=== PATIENT | female | born 1935 | race Asian ===

== ENCOUNTER 2016-10-25 13:52 | Day surgery (SDC) | payer MEDICARE ==
[~2016-10-25] VITALS: Ht 152.4 cm; Wt 63.0 kg
[~2016-10-25 13:52] MED LIST: 0.9% Sodium Chloride 1,000 ML IV PRN; OLP.1OP5 BOTH_EYES; Sodium Chloride LOK Flush 10 mL Syringe IV PRN; fentaNYL-PF 50 mCg/mL 2 mL Inj IVPUSH PRN
[2016-10-25 14:19] VITALS: BP 165/83; PULSE 87; RESP 14; O2SAT 96
[2016-10-25] MEDS ORDERED: METF500T4 PO (14:24)
[2016-10-25] MEDS ORDERED: NIFE30TA79 PO (14:24)
--- NOTE | 2016-10-25 16:14 | PCM.ENDEGD ---
EGD Date of Service: Oct 25, 2016 Physician Kale Muir MD Pre Procedure Diagnosis: Reflux Post Procedure Dx & Findings: Duodenal ulcers Procedure Esophagogastroduodenoscopy PROCEDURE IN DETAIL: The patient was placed in left lateral decubitus position. Bite block was placed. Scope lubricated, placed in posterior pharynx, passed through the cricopharyngeus and esophagus, slowly advanced the entire length of the gastric pouch, pylorus was identified, scope passed through the pylorus and descending portion of duodenum, withdrawn in the antrum, retroflexed upon itself for view of fundus and cardia. Scope was then withdrawn through the oropharynx. Esophagus was unremarkable except in the Z line there were some irregular lines. This was biopsied using cold forceps. The stomach appeared normal. Retroflexion was done. Stomach was easily inflatable and deflated using air. Cardia fundus body antrum pylorus were visualized. There was no ulcer or erosions or masses. Scope was advanced to the distal duodenum. In the duodenal bulb as well as the first and second pass of the duodenum, there were multiple clean-based ulcers. There were swelling as well. Sample Biopsies obtained. Impression Irregular Z line status post biopsies Duodenal ulcers with sampling biopsies Recommendation Stop all NSAIDs Resume Prilosec 20 mg twice a day. Presedation Assessment Risks and Benefits Informed consent was obtained from the patient after all risks and benefits including but not limited to drug reaction, infection, pain, bleeding, perforation, as well as alternatives were discussed. Patient monitoring Continuous pulse oximetry, cardiac monitoring, blood pressure monitoring, IV access, and oxygen at 2L per nasal cannula. Periprocedural Fentanyl: Fentanyl 75mcg Incrementally Midazolam: Midazolam 3mg Incrementally Complications There were no periprocedural complications identified. Post Procedure Plan Post Procedure Recommendations 1. Restrict activities today. 2. Resume normal activities in the morning. 3. Resume medications. 4. GERD behavioral modification: - Avoid fatty, acidic, spicy, large meals - Do not lie down after meals - Do not eat or drink anything for at least 2 1/2 hours before going to bed at night - Discontinue tobacco and alcohol - Decrease or avoid caffeine - Avoid chocolate and mints - Decrease weight - Avoid aspirin and non steroidal anti-inflammatory agents (NSAID) such as Aleve, Advil, Mobic, Naproxen, Ibuprofen, etc 5. Add proton pump inhibitor. Take 30 minutes before 1st meal of the day. 6. Patient informed of normal post procedure side effects as bloating, drowsiness, blood streaking in the stool 7. If gastric biopsy reveal H.pylori, continue with appropriate treatment 8. If small bowel biopsy reveals celiac, continue with appropriate treatment 9. Please don't hesitate to call me with any questions Kale Muir MD Oct 25, 2016 16:14
[2016-10-25 16:45] VITALS: BP 162/74; PULSE 80; RESP 16; O2SAT 96
[2016-10-25 16:55] VITALS: BP 162/84; PULSE 78; RESP 16; O2SAT 94
--- NOTE | 2016-10-25 17:19 | PCM.ENDCOL ---
Colonoscopy Date of Service: Oct 25, 2016 Physician Kale Muir MD Pre Procedure Diagnosis: Screening colonoscopy Post Procedure Dx & Findings: Polyp hemorrhoids Procedure Colonoscopy Prep adequate Withdrawal 16 minutes PROCEDURE IN DETAIL: After unremarkable rectal examination, the Olympus video colonoscope was inserted into patient's anal canal and was advanced to cecum. Landmarks were identified including the ileocecal valve and appendiceal orifice. Scope was withdrawn systematically. The mucosa of the cecum, ascending, transverse, descending, sigmoid, rectal mucosa lined with whitish, pink, smooth, glistening, normal-appearing mucosa, normal fine branching, underlying vascularity, normal haustra. The patient tolerated procedure and was transported to observation area. In the ascending colon, there was a 3 mm polyp which was removed completely using cold snare. During the retrieval, the polyp appeared to have disintegrated. In the transverse colon there was a 2 mm polyp which was resected completely using cold snare. In the rectosigmoid area, there was a 2 mm polyp which was removed completely using cold snare. In the rectum there was a 1 mm polyp which was removed completely using cold forceps. In the rectum retroflexion was done which showed hemorrhoids. Anal canals was inspected carefully on the way out and hemorrhoids noted. Impression Polyp 4 status post complete removal. One of them was disintegrated during the retrieval process. Hemorrhoids Recommendation Repeat colonoscopy in 3 years. Presedation Assessment Risks and Benefits Informed consent was obtained from the patient after all risks and benefits including but not limited to drug reaction, infection, pain, bleeding, perforation, as well as alternatives were discussed. Patient monitoring Continuous pulse oximetry, cardiac monitoring, blood pressure monitoring, IV access, and oxygen at 2L per nasal cannula. Complications There were no periprocedural complications identified. Post Procedure Plan Post Procedure Recommendations 1. Restrict activities today. 2. Resume normal activities in the morning. 3. Resume medications. 4. Patient informed of normal post procedure side effects as bloating, drowsiness, blood streaking in the stool. 5. average risk CRCS. If colon polyps come back as: -Hyperplastic- can repeat colonoscopy in 10 years -Tubular adenoma- repeat colonoscopy in 5 years -Tubulovillous/villous adenoma- repeat colonoscopy in 3 years -If any dysplasia- return to clinic as soon as possible 6. Please don't hesitate to call me with any questions. Kale Muir MD Oct 25, 2016 17:19
--- NOTE | 2016-10-29 10:09 | PATH ---
SURGICAL PATHOLOGY Attending Physician:Kale Muir M.D. CASE STATUS: Signed Out PATIENT NAME: MARICRUZ VELASQUEZ PID: [id number] : 1935 DATE COLLECTED:10/25/2016 00:00 SPECIMEN: 1: Duodenum, Biopsy 2: Esophagus, Biopsy 3: Colon, Biopsy 4: Colon, Biopsy 5: Rectum, Biopsy CLINICAL HISTORY: 1: DUODENAL ULCER BIOPSY 2: ESOPHAGUS BIOPSY 3: TRANSVERSE COLON POLYP X1 4: SIGMOID POLYP X1 5: RECTAL POLYP X1 FINAL DIAGNOSIS: 1.DUODENAL ULCER BIOPSY: FRAGMENT OF DUODENAL MUCOSA WITH CHRONIC DUODENITIS AND FOCAL SUPERFICIAL MUCOSAL EROSION. Negative for dysplasia and malignancy. 2.ESOPHAGUS BIOPSY: FRAGMENTS OF SQUAMOUS MUCOSA AND GASTRIC CARDIA-TYPE MUCOSA NEGATIVE FOR SPECIALIZED METAPLASIA OF COATES' S ESOPHAGUS. CHRONIC INFLAMMATION WITH REACTIVE EPITHELIAL CHANGES, BUT NEGATIVE FOR DYSPLASIA AND MALIGNANCY. RARE EOSINOPHILS PRESENT WITHIN SQUAMOUS EPITHELIUM CONSISTENT WITH CHANGES OF CHRONIC REFLUX. 3.TRANSVERSE COLON POLYP: HYPERPLASTIC POLYP. 4.SIGMOID COLON POLYP: TUBULAR ADENOMA. 5.RECTAL POLYP: HYPERPLASTIC POLYP. ICD10 CODE D12.5 GROSS DESCRIPTION: The specimen is received in five formalin filled containers labeled with the patient's name. 1). The specimen is sublabeled "duodenal ulcer" and consists of a 0.3 x 0.2 x 0.2 CM portion of tissue which is entirely submitted in cassette 1A. 2). The specimen is sublabeled "esophagus" and consists of 2 portions of tissue which aggregate to 0.3 x 0.3 x 0.2 CM. Specimen is entirely submitted in cassette 2A. 3). The specimen is sublabeled "transverse colon polyp x1" and consists of a 0.3 x 0.3 x 0.3 CM portion of tissue which is entirely submitted in cassette 3A. 4). The specimen is sublabeled "sigmoid polyp X1" and consists of a 0.3 x 0.2 x 0.2 CM portion of tissue which is entirely submitted in cassette 4A. 5). The specimen is sublabeled "rectal polyp X1" and consists of a 0.3 x 0.2 x 0.2 CM portion of tissue which is entirely submitted in cassette 5A. 10/26/2016 DAC MICRO DESCRIPTION: See diagnosis. ICD-9 CODES: CPT CODES: 1: 41454 2: 90522 3: 26655 4: 32038 5: 47973 Electronically Signed Out Luisito Alvarez MD [facility] [address], [place] [address] Technical component performed at [facility], [address], [place], [address]
== END 2016-10-25 23:59 | disposition home or self-care (01) ==
LOC: END 13:52
PROVIDERS: ATTEND Internal Medicine
DX: Z12.11 Encounter for screening for malignant neoplasm of colon (principal); D12.5 Benign neoplasm of sigmoid colon; K63.5 Polyp of colon; K62.1 Rectal polyp; K64.9 Unspecified hemorrhoids; K21.9 Gastro-esophageal reflux disease without esophagitis; K29.80 Duodenitis without bleeding; E11.9 Type 2 diabetes mellitus without complications; Z79.84 Long term (current) use of oral hypoglycemic drugs; I10 Essential (primary) hypertension
CPT/HCPCS: 43239; 45380; 45385; 88305; 99153; G0500; J2250; J3010; J7030

== ENCOUNTER 2016-12-10 03:02 | Emergency (ER) | payer MEDICARE ==
[~2016-12-10] VITALS: Ht 152.4 cm; Wt 61.4 kg
[~2016-12-10 03:02] MED LIST changes: -0.9% Sodium Chloride 1,000 ML IV PRN; +METF500T4 PO; +NIFE30TA79 PO; -OLP.1OP5 BOTH_EYES; -Sodium Chloride LOK Flush 10 mL Syringe IV PRN; -fentaNYL-PF 50 mCg/mL 2 mL Inj IVPUSH PRN
[2016-12-10 03:09] VITALS: BP 128/74; PULSE 87; RESP 20; O2SAT 98
--- NOTE | 2016-12-10 03:35 | ED.REPORT ---
HPI-General Illness Date of Service Dec 10, 2016 ED Provider: Ton Le MD 81 year old female with a history of CAD, DM, and HTN presents to the ER complaining of diffuse itching for the past month, worsening over the past few days. She states that she has had similar symptoms off and on throughout her life. Patient denies any difficulty breathing, cough, and wheezing. She does not voice any further medical complaints at this time. Nursing Notes Stated Complaint: ITCHY Chief Complaint: Allergic Reaction Nursing Notes Reviewed: Yes Allergies: Coded Allergies: aspirin (Verified Allergy, Unknown, 07/14/15) Scheduled Famotidine (Pepcid) 20 Mg Tablet 20 MG PO BID Loratadine (Claritin) 10 Mg Capsule 10 MG PO DAILY Metformin (Metformin) 500 Mg Tablet 500 MG PO BID Nifedipine ER (Nifedipine ER) 30 Mg Tab.er.24 30 MG PO DAILY Prednisone (PredniSONE) 20 Mg Tablet 40 MG PO DAILY Scheduled PRN diphenhydrAMINE HCl (Benadryl) 25 Mg Capsule 25 MG PO HS PRN PRN General Time Seen by MD: 03:35 Chief Complaint Other (Itching) Hx Obtained From: Patient Arrived By: Walk-in Sudden in Onset?: No Onset Occurred: More than a week ago... (1 month) Symptom Duration: Since onset Associated with: Denies: Shortness of breath Pertinent Negative: Pt denies other symptoms Similar Sx Previous: Yes Past Medical History Past Medical History Reports: Coronary artery disease, Diabetes mellitus, Hyperlipidemia, Hypertension Past Surgical History knee cataract Smoking History Never Smoker Social History Alcohol Use: Denies alcohol use Drug Use: Denies drug use Other Social History: Good social support, , Local resident Ambulatory Status Independent Review of Systems Full Review of Systems Constitutional: Denies: Chills, Fever Respiratory: Denies: Non-productive cough, Shortness of breath, Wheezing Skin: Reports Itching, Reports Rash Complete sys rev & neg: except as marked. Physical Exam Vital Signs Vital Signs Date Time Temp Pulse Resp B/P Pulse Ox O2 Delivery O2 Flow Rate FiO2 12/10/16 03:09 36.0 87 20 128/74 98 Room Air Initial VS: Reviewed Head / Eyes: Atraumatic, Normocephalic Neck: Supple, Non-tender, Full range of motion Abdomen / GI: Soft, Non-tender, No guarding, No rebound, No distention Extremities: Vascular intact, Neuro intact, No swelling, No tenderness Neurologic: Alert, Oriented, Nonfocal General/Constitutional: Awake, Alert, Well developed, Well nourished Behavior: Positive: Anxious ENT: Airway patent, Mucous membranes moist, Pharynx NL, Tympanic membs NL, Ext aud canal NL Respiratory / Chest: Breath sounds NL, No respiratory distress, No rales, No rhonchi, No wheezing Cardiovascular: Heart rate NL, Regular rhythm, Heart sounds NL, Cap refill not delayed, Peripheral circulation NL Skin: Warm, Dry, Intact Color / Condition: Positive: Rash present Rash / Lesion Notes: Scattered hives over the upper and lower arms. Chest and back are spared. Rash / Lesion Location: Positive: Arm L, Arm R Re-Eval/Medical Decision Med Decision/Clinical Course 81-year-old female with intermittent hives over a long period of time but no evaluation for allergies prior. She is concerned that this me she has liver disease or some other life-threatening illness. Long-term intermittent course would suggest otherwise. Treated with Pepcid, Claritin, when necessary Benadryl, and a brief steroid course of 40 mg daily. No evidence of airway or oral involvement. Allergy testing suggested. Follow up with her PCP. Time of Eval: 03:44 Re-Evaluation/Progress Note: Discussed physical examination findings and plan to discharge. Patient is amenable to the plan. Return precautions given. All other questions addressed. Counseled Regarding: Diagnosis, Need for follow-up, When/why to return to ED Discharge & Departure Primary Impression: Urticaria Disposition: Home Discharge Condition All VS Reviewed: Yes Condition: Stable Patient Instructions: Urticaria (ED) Additional Instructions: The source of these skin bumps is allergy. I do not know what you are allergic to, and it may be very difficult to figure out. However, you can be referred to an director of catering sales, and they can do testing to begin to identify what is bothering you. In the meantime, begin prednisone two tabs daily for seven days. Take Pepcid twice daily. Take Claritin daily. Take Benadryl at night if needed to sleep to prevent itch. Trying not to itch your skin. This just causes more rash. Referrals: Bird Balbuena MD (PCP) Scribe Attestation Portions of this note were transcribed by Umer Lafleur. I, Dr. Le, personally performed the history, physical exam and medical decision-making; I reviewed and confirmed the accuracy of the information in the transcribed note. Signed by: Kassy Martin. 12/10/2016 - 03:48 copies to: Bird Balbuena MD, Christopher W MD Dec 10, 2016 03:35 UMER LAFLEUR Dec 10, 2016 03:42
[2016-12-10] MEDS ORDERED: diphenhydrAMINE 25 mg Capsule PO ONE (03:40)
[2016-12-10] MEDS ORDERED: Dexamethasone 20 mg/2 mL Oral Solution PO ONE (03:40)
[2016-12-10] MEDS ORDERED: DIPH25CA6 PO (03:46)
[2016-12-10] MEDS ORDERED: FAMO20T PO (03:46)
[2016-12-10] MEDS ORDERED: LORA10CA PO (03:46)
[2016-12-10] MEDS ORDERED: PRE20 PO (03:46)
== END 2016-12-10 03:57 | disposition home or self-care (01) ==
LOC: SED 03:02
DX: L50.9 Urticaria, unspecified (principal); I25.10 Atherosclerotic heart disease of native coronary artery without angina pectoris; E11.9 Type 2 diabetes mellitus without complications; I10 Essential (primary) hypertension; E78.5 Hyperlipidemia, unspecified; Z79.84 Long term (current) use of oral hypoglycemic drugs; Z88.6 Allergy status to analgesic agent